=== PATIENT | female | born 1990 | race Caucasian/White ===

== ENCOUNTER 2018-05-02 08:10 | Emergency (ER) | payer OTHER ==
[2018-05-02 08:14] VITALS: BMI 29.2
[2018-05-02 08:18] VITALS: O2SAT 100
[2018-05-02 09:13] LABS: BASO # 0.1 K/uL (0.0-0.2); BASO % 0.6 % (0.0-2.0); EOS # 0.1 K/uL (0.0-0.7); EOS % 1.3 % (0.0-4.0); HEMOGLOBIN 11.1 g/dL (11.0-16.0); LYMPH # 1.7 K/uL (1.0-4.3); LYMPH % 18.7 % (20.0-40.0); MEAN CORPUSCULAR HEMOGLOBIN 24.8 pg (27.0-31.0); MEAN CORPUSCULAR HGB CONC 32.2 g/dL (33.0-37.0); MEAN PLATELET VOLUME 8.9 fL (7.2-11.7); MONO # 0.4 K/uL (0.0-0.8); MONO % 4.7 % (0.0-10.0); NEUT # 6.6 K/uL (1.8-7.0); NEUT % 74.7 % (50.0-75.0); RBC 4.5 Mil/uL (3.80-5.20); RED CELL DISTRIBUTION WIDTH 16.5 % (11.5-14.5); WHITE BLOOD COUNT 8.9 K/uL (4.8-10.8)
[2018-05-02 09:18] LABS: MEAN CELL VOLUME 76.9 fL (81.0-99.0)
[2018-05-02 09:19] LABS: SQUAMOUS EPITHIAL 6 /hpf (0-5); URINE BACTERIA OCC (<OCC); URINE BILIRUBIN NEGATIVE (NEGATIVE); URINE BLOOD NEGATIVE (NEGATIVE); URINE CLARITY Clear (Clear); URINE COLOR Yellow (YELLOW); URINE GLUCOSE (UA) NORMAL (Normal); URINE LEUKOCYTE ESTERASE TRACE Leu/uL (Negative); URINE PROTEIN NEGATIVE (NEGATIVE); URINE UROBILINOGEN NORMAL mg/dL (0.2-1.0)
[2018-05-02 09:21] LABS: ALB/GLOB RATIO 1.3 (1.0-2.1); ALBUMIN 4.2 g/dL (3.5-5.0); ALT/SGPT 22 U/L (9-52); AST/SGOT 16 U/L (14-36); BLOOD UREA NITROGEN 10 mg/dL (7-17); CALCIUM 9.2 mg/dl (8.6-10.4); GFR NON-AFRICAN AMERICAN > 60; LIPASE 41 U/L (23-300)
--- NOTE | 2018-05-02 09:36 | C.PDOC ---
History Of Present Illness Patient is a 27 year old female who presents to the ED complaining of intermittent RUQ pain that has been present for the past 3 days. Patient states that she recently found out she was with her LMP being on March 08. She states her symptoms are not associated with PO intake and denies any fever, chills, vomiting, diarrhea, dysuria, vaginal bleeding, or vaginal discharge. . Time Seen by Provider: 05/02/18 08:46 Chief Complaint (Nursing): Abdominal Pain History Per: Patient History/Exam Limitations: no limitations Onset/Duration Of Symptoms: Days (3), Intermittent Episodes Current Symptoms Are (Timing): Still Present Location Of Pain/Discomfort: RUQ Quality Of Discomfort: "Pain" Associated Symptoms: denies: Fever, Chills, Vomiting, Diarrhea, Urinary Symptoms Recent travel outside of the [place]: No Additional History Per: Patient Abnormal Vaginal Bleeding: No Last Menstral Period: March 08 : 1 Para: 0 Past Medical History Reviewed: Historical Data, Nursing Documentation, Vital Signs Vital Signs: Last Vital Signs Temp 98.1 F 05/02/18 08:14 Pulse 96 H 05/02/18 08:14 Resp 18 05/02/18 08:14 BP 124/76 05/02/18 08:14 Pulse Ox 100 05/02/18 08:14 - Medical History PMH: No Chronic Diseases Surgical History: No Surg Hx Family History: States: Unknown Family Hx - Social History Hx Alcohol Use: No Hx Substance Use: No - Immunization History Hx Tetanus Toxoid Vaccination: No Hx Influenza Vaccination: No Hx Pneumococcal Vaccination: No Review Of Systems Constitutional: Negative for: Fever, Chills Gastrointestinal: Positive for: Abdominal Pain (RUQ). Negative for: Vomiting, Diarrhea Genitourinary: Negative for: Dysuria, Vaginal Discharge, Vaginal Bleeding Physical Exam - Physical Exam Appears: Non-toxic, No Acute Distress, Other (comfortable ) Skin: Normal Color, Warm, Dry Head: Atraumatic, Normacephalic Oral Mucosa: Moist Neck: Normal ROM, Supple Chest: Symmetrical, No Deformity Cardiovascular: Rhythm Regular, No Murmur Respiratory: Normal Breath Sounds, No Rales, No Rhonchi, No Wheezing Gastrointestinal/Abdominal: Soft, Tenderness (mild RUQ), Other (McBurney's point ) Back: No CVA Tenderness ED Course And Treatment - Laboratory Results Result Diagrams: 05/02/18 09:09 05/02/18 09:09 Lab Results: Total Bilirubin 0.2 mg/dL (0.2-1.3) 05/02/18 09:09 AST 16 U/L (14-36) 05/02/18 09:09 ALT 22 U/L (9-52) 05/02/18 09:09 Alkaline Phosphatase 60 U/L (38-126) 05/02/18 09:09 Total Protein 7.4 g/dL (6.3-8.3) 05/02/18 09:09 Albumin 4.2 g/dL (3.5-5.0) 05/02/18 09:09 Globulin 3.2 gm/dL (2.2-3.9) 05/02/18 09:09 Albumin/Globulin Ratio 1.3 (1.0-2.1) 05/02/18 09:09 Lipase 41 U/L (23-300) 05/02/18 09:09 Urine Color Yellow (YELLOW) 05/02/18 09:09 Urine Clarity Clear (Clear) 05/02/18 09:09 Urine pH 5.0 (5.0-8.0) 05/02/18 09:09 Ur Specific [place] 1.019 (1.003-1.030) 05/02/18 09:09 Urine Protein Negative mg/dL (NEGATIVE) 05/02/18 09:09 Urine Glucose (UA) Normal mg/dL (Normal) 05/02/18 09:09 Urine Ketones Negative mg/dL (NEGATIVE) 05/02/18 09:09 Urine Blood Negative (NEGATIVE) 05/02/18 09:09 Urine Nitrate Negative (NEGATIVE) 05/02/18 09:09 Urine Bilirubin Negative (NEGATIVE) 05/02/18 09:09 Urine Urobilinogen Normal mg/dL (0.2-1.0) 05/02/18 09:09 Ur Leukocyte Esterase Trace Padilla/uL (Negative) 05/02/18 09:09 Urine WBC (Auto) 4 /hpf (0-5) 05/02/18 09:09 Urine RBC (Auto) 1 /hpf (0-3) 05/02/18 09:09 Ur Squamous Epith Cells 6 /hpf (0-5) H 05/02/18 09:09 Urine Bacteria Occ (<OCC) H 05/02/18 09:09 O2 Sat by Pulse Oximetry: 100 (on RA) Pulse Ox Interpretation: Normal - CT Scan/US abd US Other Rad Studies (CT/US): Read By Radiologist, Radiology Report Reviewed CT/US Interpretation: Accession No. : [id number]. Patient Name / ID : BERNARD GREENWOOD / [id number]. Exam Date : 05/02/2018 09:15:22 ( Approved ). Study Comment : Sex / Age : F / 27Y. Creator : Lazara Nogueira MD. Dictator : Lazara Nogueira MD. Hide House Supervisor : Business Administrator : Laura Nogueira MD. Approver2 : Report Date : 05/02/2018 11:10:37. My Comment : . Date of service: 05/02/2018. HISTORY: ruq pain, r/o cholecystitis. COMPARISON: None available. TECHNIQUE: Sonographic evaluation of the right upper quadrant of the abdomen. FINDINGS: LIVER: Measures 14.1 cm in length. Echogenic liver may be seen in setting of hepatic parenchymal disease or fatty infiltration. No focal hepatic mass identified. The main portal vein appears patent with normal directional flow. No intrahepatic bile duct dilatation. GALLBLADDER: No gallstones. No gallbladder wall thickening or pericholecystic edema. Negative sonographic Solorio's sign as assessed by the menu planner. COMMON BILE DUCT: Measures 2 mm. PANCREAS: Not well-visualized. RIGHT KIDNEY: Measures approximately 11.3 x 4.3 x 5.0 cm. No obstructing calculus or hydronephrosis identified. AORTA: Limited visualization appears grossly unremarkable. IVC: Limited visualization appears grossly unremarkable. OTHER FINDINGS: None . IMPRESSION: Echogenic liver may be seen in setting of hepatic parenchymal disease or fatty infiltration. transvaginal US Other Rad Studies (CT/US): Read By Radiologist, Radiology Report Reviewed CT/US Interpretation: Accession No. : [id number]. Patient Name / ID : BERNARD GREENWOOD / [id number]. Exam Date : 05/02/2018 10:00:05 ( Approved ). Study Comment : Sex / Age : F / 27Y. Creator : Lazara Nogueira MD. Dictator : Lazara Nogueira MD. Hide House Supervisor : Business Administrator : Lazara Nogueira MD. Approver2 : Report Date : 05/02/2018 10:50:29. My Comment : . Date of service: 2018-05-02 10:00:05. Indication: abd pain, . Comparison: Pelvis ultrasound performed 12/27/13. Technique: Real- time transabdominal pelvic ultrasound was performed. Findings: Uterus measures approximately 12.5 x 6.7 x 3.5 cm. Anteverted. Cervix length measures 3.8 cm. There is a single intrauterine fetus present. 4 mm yolk sac. The gestational sac measures 3.4 cm and is compatible with a gestational age of 8 weeks 3 days. The crown-rump length measures 2.0 cm and is compatible with a gestational age of 8 weeks 4 days. There is heart motion which measured 144.4 BPM. The right ovary measures 3.5 x 2.2 x 3.4 cm. The left ovary measures 2.6 x 2.6 x 3.1 cm. Blood flow was demonstrated to both ovaries. Impression: Live single intrauterine with estimated gestational age 8 weeks 3 days by gestational sac calculation and 8 weeks 4 days by crown-rump length calculation. heart rate 144.4 bpm. Advise an anomaly screen at 16-18 weeks gestational age. Progress Note: Bloodwork, Urinalysis, US Abdomen, US OB Transvaginal were ordered. Disposition Counseled Patient/Family Regarding: Studies Performed, Diagnosis, Need For Followup, Rx Given - Disposition Referrals: [facility] [Outside] Disposition: HOME/ ROUTINE Disposition Time: 11:25 Condition: STABLE Additional Instructions: FOLLOW UP WITH YOUR DOCTOR IN 1-2 DAYS, AND WITH COMMERCIAL ACCOUNT OFFICER WITHIN 1 WEEK RETURN TO ER IF YOUR SYMPTOMS WORSEN Prescriptions: Famotidine [Pepcid] 20 mg PO BID PRN #15 tab PRN Reason: abdominal Instructions: Stomach Pain in Early Forms: [facility] ([place]) Print Language: SOUTH AFRICAN - Clinical Impression Clinical Impression: , Fatty liver - Scribe Statement The provider has reviewed the documentation as recorded by the Jacob Perez All medical record entries made by the Jacob were at my direction and personally dictated by me. I have reviewed the chart and agree that the record accurately reflects my personal performance of the history, physical exam, medical decision making, and the department course for this patient. I have also personally directed, reviewed, and agree with the discharge instructions and disposition.
--- NOTE | 2018-05-02 10:53 | US ---
Date of service: 2018-05-02 10:00:05 Indication: abd pain, Comparison: Pelvis ultrasound performed 12/27/13 Technique: Real-time transabdominal pelvic ultrasound was performed. Findings: Uterus measures approximately 12.5 x 6.7 x 3.5 cm. Anteverted. Cervix length measures 3.8 cm. There is a single intrauterine fetus present. 4 mm yolk sac. The gestational sac measures 3.4 cm and is compatible with a gestational age of 8 weeks 3 days. The crown-rump length measures 2.0 cm and is compatible with a gestational age of 8 weeks 4 days. There is heart motion which measured 144.4 BPM. The right ovary measures 3.5 x 2.2 x 3.4 cm. The left ovary measures 2.6 x 2.6 x 3.1 cm. Blood flow was demonstrated to both ovaries. Impression: Live single intrauterine with estimated gestational age 8 weeks 3 days by gestational sac calculation and 8 weeks 4 days by crown-rump length calculation. heart rate 144.4 bpm. Advise an anomaly screen at 16-18 weeks gestational age.
--- NOTE | 2018-05-02 11:13 | US ---
Date of service: 05/02/2018 HISTORY: ruq pain, r/o cholecystitis COMPARISON: None available TECHNIQUE: Sonographic evaluation of the right upper quadrant of the abdomen. FINDINGS: LIVER: Measures 14.1 cm in length. Echogenic liver may be seen in setting of hepatic parenchymal disease or fatty infiltration. No focal hepatic mass identified. The main portal vein appears patent with normal directional flow. No intrahepatic bile duct dilatation. GALLBLADDER: No gallstones. No gallbladder wall thickening or pericholecystic edema. Negative sonographic Solorio's sign as assessed by the title officer. COMMON BILE DUCT: Measures 2 mm. PANCREAS: Not well-visualized. RIGHT KIDNEY: Measures approximately 11.3 x 4.3 x 5.0 cm. No obstructing calculus or hydronephrosis identified. AORTA: Limited visualization appears grossly unremarkable. IVC: Limited visualization appears grossly unremarkable. OTHER FINDINGS: None . IMPRESSION: Echogenic liver may be seen in setting of hepatic parenchymal disease or fatty infiltration.
[2018-05-02 11:40] VITALS: BP 122/75; PULSE 89; RESP 16; TEMP 98.2
== END 2018-05-02 11:38 | disposition home or self-care (01) ==
LOC: C.ER 08:10
DX: O26.891 Other specified pregnancy related conditions, first trimester (principal); K76.0 Fatty (change of) liver, not elsewhere classified; Z3A.08 8 weeks gestation of pregnancy

== ENCOUNTER 2018-07-01 11:49 | Emergency (ER) | payer OTHER ==
[2018-07-01 11:49] VITALS: BMI 29.2
[2018-07-01 13:31] LABS: BASO % 0.2 % (0.0-2.0); EOS # 0.1 K/uL (0.0-0.7); EOS % 0.6 % (0.0-4.0); HEMOGLOBIN 10.6 g/dL (11.0-16.0); LYMPH # 1.6 K/uL (1.0-4.3); LYMPH % 16.1 % (20.0-40.0); MEAN CELL VOLUME 77.4 fL (81.0-99.0); MEAN CORPUSCULAR HEMOGLOBIN 25.4 pg (27.0-31.0); MEAN CORPUSCULAR HGB CONC 32.8 g/dL (33.0-37.0); MEAN PLATELET VOLUME 9.3 fL (7.2-11.7); MONO # 0.4 K/uL (0.0-0.8); MONO % 4.4 % (0.0-10.0); NEUT # 7.9 K/uL (1.8-7.0); NEUT % 78.7 % (50.0-75.0); RBC 4.18 Mil/uL (3.80-5.20); RED CELL DISTRIBUTION WIDTH 16.9 % (11.5-14.5); WHITE BLOOD COUNT 10.1 K/uL (4.8-10.8)
[2018-07-01 13:35] LABS: HCG,QUALITATIVE URINE POSITIVE (NEGATIVE)
[2018-07-01 13:42] LABS: SQUAMOUS EPITHIAL 1 /hpf (0-5); URINE BILIRUBIN NEGATIVE (NEGATIVE); URINE BLOOD NEGATIVE (NEGATIVE); URINE CLARITY Clear (Clear); URINE COLOR Straw (YELLOW); URINE GLUCOSE (UA) NORMAL (Normal); URINE LEUKOCYTE ESTERASE NEG Leu/uL (Negative); URINE PROTEIN NEGATIVE (NEGATIVE); URINE UROBILINOGEN NORMAL mg/dL (0.2-1.0)
[2018-07-01 13:51] LABS: ALBUMIN 3.7 g/dL (3.5-5.0); ALT/SGPT 25 U/L (9-52); AST/SGOT 27 U/L (14-36); BLOOD UREA NITROGEN 6 mg/dL (7-17); CALCIUM 9.3 mg/dl (8.6-10.4); GFR NON-AFRICAN AMERICAN > 60
[2018-07-01 14:54] VITALS: RESP 16
--- NOTE | 2018-07-01 15:07 | US ---
Date of service: 07/01/2018 PROCEDURE: OB Pelvic Ultrasound HISTORY: vaginal spotting LMP: 03/08/2018 COMPARISON: Comparison is made to the previous study dated 05/02/2018 FINDINGS: UTERUS: Gestational sac: Single intrauterine gestation. Heart rate: 137 bpm. age (Ultrasound estimated): 17 weeks 5 days +/-1 week 2 days Katie-gestational hemorrhage: None. Date of delivery (Ultrasound estimated) : 12/04/2018 The placenta is noted at the posterior wall. CERVIX: Measures 4.3 cm. Long and closed. No cervical abnormality seen. RIGHT OVARY: Was not visualized LEFT OVARY: Was not visualized FREE FLUID: None. OTHER FINDINGS: None. IMPRESSION: Single intrauterine live with ultrasound estimated gestational age of 17 weeks 5 days +/-1 week 2 days. Estimated date of delivery by ultrasound is 12/04/2018.
--- NOTE | 2018-07-01 16:15 | C.PDOC ---
History Of Present Illness 27 yo female , LNMP 03/08/18, come in for evaluation of one episode of vaginal bleeding noted today AM " when wipe myself". Otherwise, pt denies recent illness, fever, chills, abd. pain, N/V/D, UTI sx, denies previous hx of ectopic , denies any known complication during current , (+) prentatal care. Ambulatory, not in any apparent distress. Time Seen by Provider: 07/01/18 12:27 Chief Complaint (Nursing): Female Genitourinary History Per: Patient Past Medical History Reviewed: Historical Data, Nursing Documentation, Vital Signs Vital Signs: Last Vital Signs Temp 98.1 F 07/01/18 14:52 Pulse 65 07/01/18 14:52 Resp 16 07/01/18 14:52 BP 112/65 07/01/18 14:52 Pulse Ox 98 07/01/18 14:52 - Medical History PMH: No Chronic Diseases Family History: States: Unknown Family Hx - Social History Hx Tobacco Use: No Hx Alcohol Use: No Hx Substance Use: No - Immunization History Hx Tetanus Toxoid Vaccination: No Hx Influenza Vaccination: No Hx Pneumococcal Vaccination: No Review Of Systems Except As Marked, All Systems Reviewed And Found Negative. Constitutional: Negative for: Fever, Chills ENT: Negative for: Throat Pain Cardiovascular: Negative for: Chest Pain, Palpitations Respiratory: Negative for: Cough, Shortness of Breath, Wheezing Gastrointestinal: Negative for: Nausea, Vomiting, Abdominal Pain, Diarrhea Genitourinary: Positive for: Hematuria Musculoskeletal: Negative for: Neck Pain, Back Pain Skin: Negative for: Rash Neurological: Negative for: Altered Mental Status, Headache, Dizziness Physical Exam - Physical Exam Appears: Well, Non-toxic, No Acute Distress Skin: Normal Color, Warm, Dry Head: Normacephalic Eye(s): bilateral: PERRL Nose: No Discharge Throat: No Drooling Neck: Trachea Midline, Supple Cardiovascular: Rhythm Regular, No Murmur, No JVD Respiratory: No Decreased Breath Sounds, No Accessory Muscle Use, No Stridor, No Wheezing Gastrointestinal/Abdominal: Soft, No Tenderness, No Guarding Back: No CVA Tenderness Extremity: Normal ROM, No Pedal Edema, No Swelling Neurological/Psych: Oriented x3, Normal Speech ED Course And Treatment - Laboratory Results Result Diagrams: 07/01/18 13:18 07/01/18 13:18 Lab Results: Total Bilirubin 0.3 mg/dL (0.2-1.3) 07/01/18 13:18 AST 27 U/L (14-36) 07/01/18 13:18 ALT 25 U/L (9-52) 07/01/18 13:18 Alkaline Phosphatase 66 U/L (38-126) 07/01/18 13:18 Total Protein 7.3 g/dL (6.3-8.3) 07/01/18 13:18 Albumin 3.7 g/dL (3.5-5.0) 07/01/18 13:18 Globulin 3.6 gm/dL (2.2-3.9) 07/01/18 13:18 Albumin/Globulin Ratio 1.0 (1.0-2.1) 07/01/18 13:18 Urine Color Straw (YELLOW) 07/01/18 13:18 Urine Clarity Clear (Clear) 07/01/18 13:18 Urine pH 7.0 (5.0-8.0) 07/01/18 13:18 Ur Specific [place] 1.004 (1.003-1.030) 07/01/18 13:18 Urine Protein Negative mg/dL (NEGATIVE) 07/01/18 13:18 Urine Glucose (UA) Normal mg/dL (Normal) 07/01/18 13:18 Urine Ketones Negative mg/dL (NEGATIVE) 07/01/18 13:18 Urine Blood Negative (NEGATIVE) 07/01/18 13:18 Urine Nitrate Negative (NEGATIVE) 07/01/18 13:18 Urine Bilirubin Negative (NEGATIVE) 07/01/18 13:18 Urine Urobilinogen Normal mg/dL (0.2-1.0) 07/01/18 13:18 Ur Leukocyte Esterase Neg Padilla/uL (Negative) 07/01/18 13:18 Urine RBC (Auto) < 1 /hpf (0-3) 07/01/18 13:18 Ur Squamous Epith Cells 1 /hpf (0-5) 07/01/18 13:18 Urine HCG, Qual Positive (NEGATIVE) 07/01/18 13:18 Beta HCG, Quant 62337.00 mIU/ML 07/01/18 13:18 Urine HCG, Qual Positive (NEGATIVE) 07/01/18 13:18 Lab Interpretation: No Acute Changes Urine POC: Positive O2 Sat by Pulse Oximetry: 98 Pulse Ox Interpretation: Normal - CT Scan/US OB US Other Rad Studies (CT/US): Radiology Report Reviewed CT/US Interpretation: reator : Riley Cohen MD. Dictator : Riley Cohen MD. Stone Grader : Sack Lifter : Riley Cohen MD. Approver2 : Report Date : 07/01/2018 15:03:46. My Comment : . Date of service: 07/01/2018. PROCEDURE: OB Pelvic Ultrasound. HISTORY: vaginal spotting. LMP: 03/08/2018. COMPARISON: Comparison is made to the previous study dated 05/02/2018. FINDINGS: UTERUS: Gestational sac: Single intrauterine gestation. Heart rate: 137 bpm. age (Ultrasound estimated): 17 weeks 5 days +/-1 week 2 days. Katie-gestational hemorrhage: None. Date of delivery (Ultrasound estimated) : 12/04/2018. The placenta is noted at the posterior wall. CERVIX: Measures 4.3 cm. Long and closed. No cervical abnormality seen. RIGHT OVARY: Was not visualized. LEFT OVARY: Was not visualized. FREE FLUID: None. OTHER FINDINGS: None. IMPRESSION: Single intrauterine live with ultrasound estimated gestational age of 17 weeks 5 days +/-1 week 2 days. Estimated date of delivery by ultrasound is 12/04/2018. Progress Note: On re-eval, pt adam febrile, hemodynamicaly stable. NOn-toxic. BLood owrk review and appears noraml. Blood type : A positive. Transvaginal US review Single intrauterine live with ultrasound estimated gestational age of 17 weeks 5 days +/-1 week 2 days. Estimated date of delivery by ultrasound is 12/04/2018. Results review with pt. Advised to F/U with OB in 1- 2 days for re-eavluation, return to ED at any time if any worsening or new changes. Pt understand and agrees with plan. Disposition Counseled Patient/Family Regarding: Studies Performed, Diagnosis, Need For Followup - Disposition [facility] Disposition: HOME/ ROUTINE Disposition Time: 16:13 Condition: STABLE Additional Instructions: Follow up with OB in 1-2 days for re-evaluation Return to ED if any worsening or new changes. Instructions: Threatened Miscarriage Forms: Work/School/Gym Excuse, [facility] (Bangladeshi) - Clinical Impression Clinical Impression: Threatened
[2018-07-01 16:37] VITALS: BP 120/78; PULSE 78; TEMP 98.2
[2018-07-01 18:12] VITALS: O2SAT 98
== END 2018-07-01 16:37 | disposition home or self-care (01) ==
LOC: C.ER 11:49
DX: O20.0 Threatened abortion (principal); Z3A.17 17 weeks gestation of pregnancy